=== PATIENT | female | born 2000 | race Caucasian/White ===

== ENCOUNTER 2021-07-20 20:45 | Observation (INO) | payer MEDICAID ==
[~2021-07-20] VITALS: Ht 157.5 cm; Wt 81.6 kg
[2021-07-20 23:10] LABS: CLARITY URINE CLEAR (CLEAR); COLOR URINE YELLOW (YELLOW); KETONES URINE NEGATIVE (NEGATIVE); LEUKOCYTE ESTERASE URINE 2+ (NEGATIVE); NITRITE URINE NEGATIVE (NEGATIVE); OCCULT BLOOD URINE NEGATIVE (NEGATIVE); PROTEIN URINE NEGATIVE (NEGATIVE); SPECIFIC GRAVITY URINE 1.009 (1.005-1.030); UROBILINOGEN URINE 0.2 E.U./dL (0.2-1.0)
== END 2021-07-21 03:45 | disposition home or self-care (01) ==
LOC: 8 EST LDRP 20:45
PROVIDERS: ADMIT Obstetrics & Gynecology; ATTEND Obstetrics & Gynecology
DX: O26.893 Other specified pregnancy related conditions, third trimester (principal); R10.9 Unspecified abdominal pain; O99.891 Other specified diseases and conditions complicating pregnancy; M54.9 Dorsalgia, unspecified; O62.9 Abnormality of forces of labor, unspecified; Z3A.33 33 weeks gestation of pregnancy
CPT/HCPCS: 59025; 76805; 76818; 81003; G0378; 99281